=== PATIENT | male | born 1995 | race Two or more races ===

== ENCOUNTER 2018-09-24 15:50 | Emergency (ER) | payer OTHER ==
[~2018-09-24] VITALS: Ht 177.8 cm; Wt 75.0 kg
[2018-09-24] MEDS ORDERED: IBUP80TA PO (15:57)
[2018-09-24] MEDS ORDERED: OXYC1TAB23 PO (15:57)
[2018-09-24] MEDS ORDERED: CLEO300C2 PO (17:16)
[2018-09-24 17:29] VITALS: BP 119/70
== END 2018-09-24 17:28 | disposition home or self-care (01) ==
LOC: M ED 15:50
DX: K05.219 Aggressive periodontitis, localized, unspecified severity (principal); R68.84 Jaw pain

== ENCOUNTER → 2019-02-01 | Outpatient (CLI) | payer OTHER ==
[~2019-02-01] MED LIST: CLEO300C2 PO; IBUP80TA PO; OXYC1TAB23 PO
--- NOTE | 2019-02-01 16:59 | REP ---
TRIPLE PHASE BONE SCAN LOWER LEGS: Following the intravenous administration of 20.7 mCi of technetium 99m MDP, the patient's lower legs are imaged in the flow phase in the anterior and posterior projections. There is no abnormal blood flow. Immediate blood pool and 2.5 hour delayed images are performed of the lower legs in multiple projections. There is no abnormal blood pooling. Delayed images show increased linear uptake along the tibial shafts bilaterally compatible with castañeda splints or stress periostitis. There is no focal stress fracture. Electronically Signed by Braden Rachel MD 02/02/2019 09:20 A
== END ==
LOC: M RAD 10:14
PROVIDERS: ATTEND Physician Assistant
DX: M79.661 Pain in right lower leg (principal)
CPT/HCPCS: 78315; A9503